=== PATIENT | female | born 1970 | race Asian ===

== ENCOUNTER 2017-10-17 20:23 | Inpatient (IN) | payer BC ==
[~2017-10-17] VITALS: Ht 162.6 cm; Wt 77.3 kg
[2017-10-17 21:38] LABS: BASOPHIL % 0.2 % (0-2); PLATELET COUNT 324 x10^3mcL (130-400)
[2017-10-17 21:40] LABS: RED CELL DISTRIBUTION WIDTH 15.5 % (11.5-14.5)
[2017-10-17 21:43] LABS: microscopic required? YES; urine erythrocyte 3+ (NEGATIVE)
[2017-10-17 21:45] LABS: CALCIUM 9.4 mg/dL (8.5-10.1); CARBON DIOXIDE 26.7 mmol/L (21-32); CHLORIDE SERUM 103 mmol/L (98-107); CREATININE SERUM 0.9 mg/dL (0.6-1.0); GFR1 > 60 mL/min; GLUCOSE SERUM 141 mg/dL (74-106); POTASSIUM SERUM 3.5 mmol/L (3.5-5.1); SODIUM SERUM 141 mmol/L (136-145)
[2017-10-17 21:54] LABS: ALBUMIN 4.3 g/dL (3.4-5.0); ALKALINE PHOSPHATASE 76 U/L (46-116); ALT/SGPT 37 U/L (14-59); AST/SGOT 17 U/L (15-37); BILIRUBIN TOTAL 0.26 mg/dL (0.20-1.00)
[2017-10-17] MEDS ORDERED: AMLODIPINE BESY PO (23:52)
[2017-10-18] VITALS (7 sets, daily range): BP systolic 116–133; BP diastolic 65–83; Ht 162.6 cm; Wt 77.3 kg
[2017-10-18 00:49] LABS: MAGNESIUM 2.4 mg/dL (1.8-2.4); PHOSPHOROUS 3.3 mg/dL (2.5-4.9)
[2017-10-18 00:56] LABS: FREE T4 0.95 ng/dL (0.76-1.46); T4(THYROXINE) 9.6 ug/dL (4.7-13.3)
[2017-10-18 01:17] LABS: CHOLESTEROL/HDL RATIO 5.6
[2017-10-18 02:49] LABS: T3 TOTAL 0.86 ng/mL
[2017-10-18 05:27] LABS: CALCIUM 8.6 mg/dL (8.5-10.1); CARBON DIOXIDE 25.8 mmol/L (21-32); CHLORIDE SERUM 105 mmol/L (98-107); CREATININE SERUM 0.7 mg/dL (0.6-1.0); GFR1 > 60 mL/min; GLUCOSE SERUM 137 mg/dL (74-106); MAGNESIUM 2.4 mg/dL (1.8-2.4); PHOSPHOROUS 3.3 mg/dL (2.5-4.9); POTASSIUM SERUM 3.4 mmol/L (3.5-5.1); SODIUM SERUM 140 mmol/L (136-145)
[2017-10-18 06:39] LABS: BASOPHIL % 0.3 % (0-2); PLATELET COUNT 306 x10^3mcL (130-400)
[2017-10-19 05:49] VITALS: BP 114/72
[2017-10-19 08:01] LABS: CALCIUM 8.6 mg/dL (8.5-10.1); CARBON DIOXIDE 26.8 mmol/L (21-32); CHLORIDE SERUM 107 mmol/L (98-107); CREATININE SERUM 0.7 mg/dL (0.6-1.0); GFR1 > 60 mL/min; GLUCOSE SERUM 116 mg/dL (74-106); MAGNESIUM 2.5 mg/dL (1.8-2.4); PHOSPHOROUS 3.8 mg/dL (2.5-4.9); POTASSIUM SERUM 3.6 mmol/L (3.5-5.1); SODIUM SERUM 140 mmol/L (136-145)
[2017-10-19 08:55] LABS: BASOPHIL % 0.2 % (0-2); PLATELET COUNT 317 x10^3mcL (130-400); RED CELL DISTRIBUTION WIDTH 16.1 % (11.5-14.5)
[2017-10-19 09:45] VITALS: BP 144/81
[2017-10-19 17:23] VITALS: BP 135/80; BP 138/80
[2017-10-19] MEDS ORDERED: KEP500 PO (17:23)
[2017-10-19] MEDS ORDERED: FLA500 PO (17:23)
[2017-10-19] MEDS ORDERED: LIPI20 PO (17:23)
[2017-10-19] MEDS ORDERED: LAC PO (17:24)
[2017-10-19 17:33] VITALS: BP 138/80
== END 2017-10-19 18:37 | disposition short-term general hospital (02) | DRG 100 ==
LOC: ED 20:23 → DU 23:07 → MU 10-18 17:05
PROVIDERS: Emergency Medicine; Family Medicine
DX: G40.109 Localization-related (focal) (partial) symptomatic epilepsy and epileptic syndromes with simple partial seizures, not intractable, without status epilepticus (principal); N17.0 Acute kidney failure with tubular necrosis; N39.0 Urinary tract infection, site not specified; E72.20 Disorder of urea cycle metabolism, unspecified; Z66 Do not resuscitate; N76.0 Acute vaginitis; E11.65 Type 2 diabetes mellitus with hyperglycemia; R31.9 Hematuria, unspecified; E78.5 Hyperlipidemia, unspecified; E87.6 Hypokalemia; E04.1 Nontoxic single thyroid nodule; R23.3 Spontaneous ecchymoses; I10 Essential (primary) hypertension; Z98.891 History of uterine scar from previous surgery
CPT/HCPCS: 83880; 84439; A9577; A9579; J0696; J2060; J7030; Q0092; Q9967